=== PATIENT | female | born 1995 | race Caucasian/White ===

== ENCOUNTER 2022-02-02 16:27 | Emergency (ER) | payer OTHER, BC ==
[2022-02-02 17:00] VITALS: BP 130/92; PULSE 95; TEMP 98.1; BMI 23.6
== END 2022-02-02 20:47 | disposition home or self-care (01) ==
LOC: JERFT 16:27
DX: M54.2 Cervicalgia (principal); M54.50 Low back pain, unspecified; V49.40XA Driver injured in collision with unspecified motor vehicles in traffic accident, initial encounter
CPT/HCPCS: 71046-TC-FY; 72050-TC-FY; 72100-TC-FY; 73000-TC-LT-FY; 99284-25